=== PATIENT | female | born 1945 | race African-American/Black ===

== ENCOUNTER 2016-06-18 05:26 | Emergency (ER) | payer OTHER ==
[~2016-06-18] VITALS: Ht 157.5 cm; Wt 77.2 kg
[2016-06-18 06:58] LABS: BASOPHILS % 0.5 % (0.0-2.0); EOSINOPHILS % 2.2 % (0.0-5.0); HEMOGLOBIN. 13.3 g/dL (12.0-16.0); LYMPHOCYTES % 16.1 % (20.0-50.0); MEAN CORPUSCULAR HEMOGLOBIN 31.2 pg (28.0-32.0); MEAN CORPUSCULAR HGB CONC 33.2 g/dL (31.0-37.0); MEAN CORPUSCULAR VOLUME 93.9 fL (81.0-99.0); MEAN PLATELET VOLUME 9.4 fl (7.4-10.4); NEUTROPHILS % 70.2 % (40.0-76.0); PLATELET 148 x1000/uL (130-400); RED BLOOD CELL COUNT 4.26 mill/uL (4.2-5.4); RED CELL DISTRIBUTION WIDTH 14.6 % (11.6-14.6); WHITE BLOOD COUNT 7.6 x1000/uL (4.5-11.0)
[2016-06-18 07:03] LABS: ANION GAP 11; CALCIUM 10.9 mg/dL (8.5-10.1); CARBON DIOXIDE 34 mEq/L (21-32); CHLORIDE 104 mEq/L (98-107); INDEX HEMOLYSI 1 (1-3); INDEX ICTERIC 1 (1-4); INDEX LIPEMIC 1 (1-3); UREA NITROGEN BLOOD 10 mg/dL (7-21)
[2016-06-18 07:10] LABS: ALANINE AMINOTRANSFERASE 26 IU/L (13-61); PHENOBARBITAL 18.7 ug/mL (15.0-40.0); PHENYTOIN 7.6 ug/mL (10-20); eGFR > 60 mL/min (>60)
[2016-06-18 08:12] VITALS: BP 170/93
[2016-06-18] MEDS ORDERED: PHENYTOIN SODIUM EXTENDED 100MG CAPSULE PO ONE (08:30)
== END 2016-06-18 09:20 | disposition home or self-care (01) ==
LOC: ER 05:41
DX: G40.909 Epilepsy, unspecified, not intractable, without status epilepticus (principal); I10 Essential (primary) hypertension
CPT/HCPCS: 36415; 80053; 80184; 80185; 85025; 99284

== ENCOUNTER 2016-07-04 00:51 | Emergency (ER) | payer OTHER ==
[~2016-07-04] VITALS: Ht 157.5 cm; Wt 82.0 kg
[2016-07-04] MEDS ORDERED: METHYLPREDNISOLONE SOD SUCC 125 MG/2 ML VIAL IV STA (02:32)
[2016-07-04] MEDS ORDERED: IPRATROPIUM BROMIDE (0.02%) 0.5MG/2.5ML NEB HHN STA (02:32)
[2016-07-04] MEDS ORDERED: ALBUTEROL (0.083%) 2.5MG/3ML NEB HHN STA (02:32)
[2016-07-04] MEDS ORDERED: SODIUM CHLORIDE 0.9% 1,000 ML IV ONE (02:32)
[2016-07-04] MEDS ORDERED: LEVOFLOXACIN 500MG PREMIX 100 ML IV ONE (02:45)
[2016-07-04] MEDS ORDERED: MAGNESIUM 2 G PREMIX 50 ML IV ONE (02:45)
[2016-07-04 03:06] LABS: BASOPHILS % 0.9 % (0.0-2.0); HEMATOCRIT. 39.1 % (36.0-48.0); HEMOGLOBIN. 12.9 g/dL (12.0-16.0); LYMPHOCYTES % 24.8 % (20.0-50.0); MEAN CORPUSCULAR HEMOGLOBIN 30.7 pg (28.0-32.0); MEAN PLATELET VOLUME 9.6 fl (7.4-10.4); MONOCYTES % 11.9 % (2.0-8.0); NEUTROPHILS % 59.4 % (40.0-76.0); PLATELET 137 x1000/uL (130-400); RED CELL DISTRIBUTION WIDTH 14.3 % (11.6-14.6)
[2016-07-04 03:16] LABS: PROTHROMBIN TIME 10.5 sec
[2016-07-04 03:22] LABS: ALANINE AMINOTRANSFERASE 24 IU/L (13-61); ALBUMIN 3.7 g/dL (3.4-5.0); ANION GAP 13; CALCIUM 9.9 mg/dL (8.5-10.1); CARBON DIOXIDE 31 mEq/L (21-32); CHLORIDE 102 mEq/L (98-107); INDEX HEMOLYSI 1 (1-3); INDEX ICTERIC 1 (1-4); INDEX LIPEMIC 1 (1-3); LIPASE 173 IU/L (73-393); NT PRO B-TYPE NATRIURETIC PEP 12 pg/mL (5-125); TROPONIN I < 0.02 ng/mL (0.00-0.04); UREA NITROGEN BLOOD 8 mg/dL (7-21); eGFR > 60 mL/min (>60)
[2016-07-04 04:45] VITALS: BP 162/90
[2016-07-04] MEDS ORDERED: LORAZEPAM 2MG/ML CPJ IV ONE (05:15)
== END 2016-07-04 06:00 | disposition short-term general hospital (02) ==
LOC: ER 01:04
DX: J18.0 Bronchopneumonia, unspecified organism (principal); G40.909 Epilepsy, unspecified, not intractable, without status epilepticus; E87.6 Hypokalemia; J45.901 Unspecified asthma with (acute) exacerbation; I10 Essential (primary) hypertension; Z98.890 Other specified postprocedural states
CPT/HCPCS: 36415; 71010; 80053; 83605; 83690; 83880; 84484; 85025; 85610; 87040; 93005; 94640; 96365; 96368; 96375; 99291; J1956; J2060; J2930; J3475; J7030; J7611

== ENCOUNTER 2016-10-12 06:26 | Emergency (ER) | payer OTHER ==
[~2016-10-12] VITALS: Ht 160 cm; Wt 78.0 kg
[~2016-10-12 06:26] MED LIST: ALBU6.7H INH; ALEN70TA46 PO; BECL8.7A6 INH; FLUT16SP15 BOTHNSTRLS; SERT-112 PO; VERA240T PO; [UNRECOGNIZED DRUG - OTHER]; keppra PO
[2016-10-12] MEDS ORDERED: LOSA50TA20 PO (07:03)
[2016-10-12] MEDS ORDERED: MONT10TA24 PO (07:03)
[2016-10-12] MEDS ORDERED: TERA2CAP53 PO (07:03)
[2016-10-12] MEDS ORDERED: PHEN100C4 PO (07:03)
[2016-10-12] MEDS ORDERED: PHEN32.418 PO (07:03)
[2016-10-12] MEDS ORDERED: IPRATROPIUM BROMIDE (0.02%) 0.5MG/2.5ML NEB HHN STA (07:15)
[2016-10-12] MEDS ORDERED: ALBUTEROL (0.083%) 2.5MG/3ML NEB HHN STA (07:15)
[2016-10-12] MEDS ORDERED: PREDNISONE 20MG TABLET PO ONE (08:00)
[2016-10-12 09:52] VITALS: BP 171/99
== END 2016-10-12 09:52 | disposition home or self-care (01) ==
LOC: ER 08:26
DX: J45.901 Unspecified asthma with (acute) exacerbation (principal); I10 Essential (primary) hypertension; G40.909 Epilepsy, unspecified, not intractable, without status epilepticus
CPT/HCPCS: 71010; 94640; 99283; J7512; J7611

== ENCOUNTER 2016-12-19 05:24 | Emergency (ER) | payer OTHER ==
[~2016-12-19] VITALS: Ht 157.5 cm; Wt 79.0 kg
[~2016-12-19 05:24] MED LIST changes: +LOSA50TA20 PO; +MONT10TA24 PO; +PHEN100C4 PO; +PHEN32.43 PO; +TERA2CAP4 PO
[2016-12-19] MEDS ORDERED: KETOROLAC 60MG/2ML VIAL IM ONE (08:15)
[2016-12-19 08:56] VITALS: BP 178/94
== END 2016-12-19 09:13 | disposition home or self-care (01) ==
LOC: ER 06:30
DX: M25.522 Pain in left elbow (principal); M54.2 Cervicalgia; I10 Essential (primary) hypertension; J45.909 Unspecified asthma, uncomplicated
CPT/HCPCS: 72125; 73080; 96372; 99284; J1885

== ENCOUNTER 2017-05-01 13:40 | Emergency (ER) | payer OTHER ==
[~2017-05-01] VITALS: Ht 162.6 cm; Wt 66.0 kg
[~2017-05-01 13:40] MED LIST changes: -ALEN70TA46 PO; +ASPI-1159 PO; -BECL8.7A6 INH; +FLUT9.9S NS; +PHEN50TA PO; -SERT-112 PO; -[UNRECOGNIZED DRUG - OTHER]; -keppra PO
[2017-05-01] MEDS ORDERED: HYDROCODONE/ACETAMINOPHEN 5/325MG TABLET PO ONE (15:00)
[2017-05-01] MEDS ORDERED: ONDANSETRON HCL 4MG/2ML VIAL IV ONE (15:00)
[2017-05-01 15:28] VITALS: BP 174/88
[2017-05-01] MEDS ORDERED: LEVOFLOXACIN 750MG PREMIX 150 ML IV ONE (15:45)
[2017-05-01] MEDS ORDERED: ACETAMINOPHEN 650MG SUPP PR ONE (15:45)
[2017-05-01 15:50] LABS: BASOPHILS % 0.8 % (0.0-2.0); EOSINOPHILS % 2.2 % (0.0-5.0); HEMATOCRIT. 40.2 % (36.0-48.0); HEMOGLOBIN. 13.3 g/dL (12.0-16.0); INR 1.1; LYMPHOCYTES % 25.6 % (20.0-50.0); MEAN CORPUSCULAR HEMOGLOBIN 31.2 pg (28.0-32.0); MEAN PLATELET VOLUME 9.6 fl (7.4-10.4); MONOCYTES % 11.6 % (2.0-8.0); NEUTROPHILS % 59.8 % (40.0-76.0); PLATELET 149 x1000/uL (130-400); RED BLOOD CELL COUNT 4.28 mill/uL (4.2-5.4); RED CELL DISTRIBUTION WIDTH 13.8 % (11.6-14.6)
[2017-05-01 15:55] LABS: CHLORIDE 104 mEq/L (98-107)
[2017-05-01 16:01] LABS: PHENOBARBITAL 17.2 ug/mL (15.0-40.0); TROPONIN I < 0.02 ng/mL (0.00-0.04)
[2017-05-01] MEDS ORDERED: DIPHENHYDRAMINE 50MG/ML VIAL IV ONE (17:15)
[2017-05-01] MEDS ORDERED: PROCHLORPERAZINE 10MG/2ML VIAL IV ONE (17:15)
[2017-05-01 17:27] LABS: CLARITY URINE CLEAR (CLEAR); COLOR URINE YELLOW (YELLOW); KETONES URINE NEGATIVE (NEGATIVE); LEUKOCYTE ESTERASE URINE NEGATIVE (NEGATIVE); NITRITE URINE NEGATIVE (NEGATIVE); OCCULT BLOOD URINE NEGATIVE (NEGATIVE); PH URINE 7.5 (4.5-8.0); PROTEIN URINE NEGATIVE (NEGATIVE); SPECIFIC GRAVITY URINE 1.013 (1.005-1.030); UROBILINOGEN URINE 0.2 E.U./dL (0.2-1.0)
== END 2017-05-01 19:03 | disposition home or self-care (01) ==
LOC: ER 13:40
DX: S16.1XXA Strain of muscle, fascia and tendon at neck level, initial encounter (principal); R42 Dizziness and giddiness; H57.8 Other specified disorders of eye and adnexa; J45.909 Unspecified asthma, uncomplicated; I10 Essential (primary) hypertension; R56.9 Unspecified convulsions; F41.9 Anxiety disorder, unspecified; E87.6 Hypokalemia; Z79.82 Long term (current) use of aspirin; Z90.49 Acquired absence of other specified parts of digestive tract; Z98.890 Other specified postprocedural states; Z90.89 Acquired absence of other organs; X58.XXXA Exposure to other specified factors, initial encounter; Y93.89 Activity, other specified; Y92.89 Other specified places as the place of occurrence of the external cause; Y99.8 Other external cause status
CPT/HCPCS: 36415; 71045; 80053; 80184; 80185; 81003; 83880; 84484; 85025; 85610; 93005; 96374; 96375; 99285; J0780; J1200; J2405

== ENCOUNTER 2017-08-20 09:14 | Emergency (ER) | payer OTHER ==
[~2017-08-20] VITALS: Ht 162.6 cm; Wt 74.0 kg
[2017-08-20] MEDS ORDERED: ONDANSETRON HCL 4MG/2ML VIAL IV STA (10:09)
[2017-08-20] MEDS ORDERED: SODIUM CHLORIDE 0.9% 1,000 ML IV ONE (10:09)
[2017-08-20] MEDS ORDERED: MORPHINE SULFATE 4 MG/ML CPJ (NOT FOR IM USE) IV STA (10:09)
[2017-08-20 10:51] LABS: BASOPHILS % 0.6 % (0.0-2.0); EOSINOPHILS % 1.8 % (0.0-5.0); HEMATOCRIT. 39.7 % (36.0-48.0); HEMOGLOBIN. 13.4 g/dL (12.0-16.0); LYMPHOCYTES % 26.5 % (20.0-50.0); MEAN CORPUSCULAR HEMOGLOBIN 31.5 pg (28.0-32.0); MEAN CORPUSCULAR VOLUME 93.2 fL (81.0-99.0); MEAN PLATELET VOLUME 9.2 fl (7.4-10.4); NEUTROPHILS % 58.1 % (40.0-76.0); PLATELET 133 x1000/uL (130-400); RED BLOOD CELL COUNT 4.26 mill/uL (4.2-5.4); RED CELL DISTRIBUTION WIDTH 13.5 % (11.6-14.6)
[2017-08-20 10:56] LABS: CHLORIDE 104 mEq/L (98-107)
[2017-08-20 10:59] LABS: PARTIAL THROMBOPLASTIN TIME 27.8 sec (23.4-31.0); PROTHROMBIN TIME 10.9 sec (9.4-11.6)
[2017-08-20] MEDS ORDERED: IOHEXOL-300 100 ML BOTTLE ONE (12:12)
[2017-08-20 12:15] LABS: CLARITY URINE CLEAR (CLEAR); COLOR URINE YELLOW (YELLOW); KETONES URINE NEGATIVE (NEGATIVE); LEUKOCYTE ESTERASE URINE 1+ (NEGATIVE); NITRITE URINE NEGATIVE (NEGATIVE); OCCULT BLOOD URINE 1+ (NEGATIVE); PROTEIN URINE NEGATIVE (NEGATIVE); UROBILINOGEN URINE 0.2 E.U./dL (0.2-1.0)
[2017-08-20 12:46] VITALS: BP 149/87
== END 2017-08-20 12:48 | disposition home or self-care (01) ==
LOC: ER 09:48
DX: R10.33 Periumbilical pain (principal); R11.0 Nausea; Z79.899 Other long term (current) drug therapy
CPT/HCPCS: 36415; 71045; 74177; 80053; 81003; 83690; 85025; 85610; 85730; 96361; 96374; 96375; 99285; J2270; J2405; J7030; Q9967

== ENCOUNTER 2017-11-13 02:49 | Emergency (ER) | payer OTHER ==
[~2017-11-13] VITALS: Ht 160 cm; Wt 79.0 kg
[2017-11-13] MEDS ORDERED: ALPRAZOLAM 0.5 MG TABLET PO ONE (03:30)
[2017-11-13 03:48] LABS: BASOPHILS % 0.5 % (0.0-2.0); EOSINOPHILS % 1.4 % (0.0-5.0); HEMATOCRIT. 44.4 % (36.0-48.0); HEMOGLOBIN. 14.7 g/dL (12.0-16.0); LYMPHOCYTES % 23.8 % (20.0-50.0); MEAN CORPUSCULAR HEMOGLOBIN 31.2 pg (28.0-32.0); MEAN CORPUSCULAR VOLUME 94.5 fL (81.0-99.0); MEAN PLATELET VOLUME 9.1 fl (7.4-10.4); NEUTROPHILS % 62.3 % (40.0-76.0); PLATELET 123 x1000/uL (130-400); RED BLOOD CELL COUNT 4.69 mill/uL (4.2-5.4); RED CELL DISTRIBUTION WIDTH 13.9 % (11.6-14.6)
[2017-11-13 03:49] LABS: CHLORIDE 105 mEq/L (98-107)
[2017-11-13 06:33] VITALS: BP 165/98
== END 2017-11-13 06:33 | disposition home or self-care (01) ==
LOC: ER 02:49
DX: F41.9 Anxiety disorder, unspecified (principal); R00.2 Palpitations; I10 Essential (primary) hypertension; Z98.890 Other specified postprocedural states; Z79.82 Long term (current) use of aspirin; Z79.899 Other long term (current) drug therapy
CPT/HCPCS: 36415; 71045; 80053; 85025; 93005; 99285

== ENCOUNTER 2017-12-17 16:40 | Emergency (ER) | payer OTHER ==
[~2017-12-17] VITALS: Ht 160 cm; Wt 82.0 kg
[2017-12-17] MEDS ORDERED: CLONIDINE 0.2MG TABLET PO ONE (17:30)
[2017-12-17 17:49] LABS: CLARITY URINE CLEAR (CLEAR); COLOR URINE YELLOW (YELLOW); KETONES URINE NEGATIVE (NEGATIVE); LEUKOCYTE ESTERASE URINE TRACE (NEGATIVE); NITRITE URINE NEGATIVE (NEGATIVE); OCCULT BLOOD URINE NEGATIVE (NEGATIVE); PROTEIN URINE NEGATIVE (NEGATIVE); SPECIFIC GRAVITY URINE 1.004 (1.005-1.030); UROBILINOGEN URINE 0.2 E.U./dL (0.2-1.0)
[2017-12-17 17:56] LABS: *AMPHETAMINES SCREEN URINE NEGATIVE (NEGATIVE); *BARBITURATES SCREEN URINE PRESUMTIVE POSITIVE (NEGATIVE); *BENZODIAZEPINES SCREEN URINE NEGATIVE (NEGATIVE); *COCAINE SCREEN URINE NEGATIVE (NEGATIVE)
[2017-12-17 17:57] LABS: CANNABINOID URINE SCREEN NEGATIVE (NEGATIVE); METHADONE URINE SCREEN NEGATIVE (NEGATIVE); OPIATES URINE SCREEN NEGATIVE (NEGATIVE); PHENCYCLIDINE URINE SCREEN NEGATIVE (NEGATIVE)
[2017-12-17 19:50] LABS: BASOPHILS % 0.8 % (0.0-2.0); EOSINOPHILS % 2.2 % (0.0-5.0); HEMATOCRIT. 41.9 % (36.0-48.0); HEMOGLOBIN. 14.1 g/dL (12.0-16.0); LYMPHOCYTES % 27.8 % (20.0-50.0); MEAN CORPUSCULAR HEMOGLOBIN 31.7 pg (28.0-32.0); MEAN CORPUSCULAR VOLUME 94.6 fL (81.0-99.0); MEAN PLATELET VOLUME 9.5 fl (7.4-10.4); MONOCYTES % 13.4 % (2.0-8.0); NEUTROPHILS % 55.8 % (40.0-76.0); PLATELET 125 x1000/uL (130-400); RED BLOOD CELL COUNT 4.43 mill/uL (4.2-5.4)
[2017-12-17 19:58] LABS: INR 1.1; PROTHROMBIN TIME 10.6 sec (9.1-11.1)
[2017-12-17 20:06] LABS: CHLORIDE 103 mEq/L (98-107)
[2017-12-17 20:11] LABS: CREATINE KINASE 93 IU/L (26-192); ETHANOL BLOOD < 10 mg/dL; PHENOBARBITAL 14.8 ug/mL (15.0-40.0)
[2017-12-17 20:17] LABS: CARBAMAZEPINE < 0.5 ug/mL (4-12); VALPROIC ACID < 3.0 ug/mL (50-100)
[2017-12-17 21:40] VITALS: BP 135/85
== END 2017-12-17 22:07 | disposition home or self-care (01) ==
LOC: ER 16:40
DX: I10 Essential (primary) hypertension (principal); N39.0 Urinary tract infection, site not specified; R51 Headache; F41.9 Anxiety disorder, unspecified; Z98.890 Other specified postprocedural states; Z79.899 Other long term (current) drug therapy
CPT/HCPCS: 36415; 70450; 71045; 80053; 80156; 80165; 80184; 80185; 80305; 81003; 82550; 84443; 84484; 85025; 85610; 93005; 99285; G0482

== ENCOUNTER 2019-01-22 06:41 | Emergency (ER) | payer OTHER ==
[~2019-01-22] VITALS: Ht 157.5 cm; Wt 82.0 kg
[~2019-01-22 06:41] MED LIST changes: -ASPI-1159 PO; +ASPI-1393 PO; -LOSA50TA20 PO; +LOSA50TA41 PO
[2019-01-22] MEDS ORDERED: LORAZEPAM 0.5MG TABLET PO ONE (08:30)
[2019-01-22] MEDS ORDERED: ACETAMINOPHEN 325MG TABLET PO ONE (08:30)
[2019-01-22] MEDS ORDERED: METOCLOPRAMIDE HCL 10MG TABLET PO ONE (08:30)
[2019-01-22 09:50] VITALS: BP 141/70
== END 2019-01-22 10:15 | disposition home or self-care (01) ==
LOC: ER 06:41
DX: R51 Headache (principal); F41.0 Panic disorder [episodic paroxysmal anxiety]; R03.0 Elevated blood-pressure reading, without diagnosis of hypertension
CPT/HCPCS: 99284; J8597

== ENCOUNTER 2019-03-08 11:13 | Emergency (ER) | payer OTHER ==
[~2019-03-08] VITALS: Ht 160 cm; Wt 81.0 kg
[2019-03-08 18:02] VITALS: BP 181/97
[2019-03-08] MEDS ORDERED: DIAZEPAM 5 MG/ML 2ML CPJ IM ONE (18:15)
[2019-03-08] MEDS ORDERED: LEVETIRACETAM 250MG TABLET PO ONE (18:45)
== END 2019-03-08 18:52 | disposition home or self-care (01) ==
LOC: ER 11:13
DX: F41.9 Anxiety disorder, unspecified (principal); R00.2 Palpitations; R51 Headache; T14.8XXA Other injury of unspecified body region, initial encounter; X58.XXXA Exposure to other specified factors, initial encounter; Y93.89 Activity, other specified; Y92.89 Other specified places as the place of occurrence of the external cause; Y99.8 Other external cause status; I10 Essential (primary) hypertension; Z98.890 Other specified postprocedural states; Z79.82 Long term (current) use of aspirin; Z79.899 Other long term (current) drug therapy
CPT/HCPCS: 93005; 96372; 99283

== ENCOUNTER 2019-05-14 08:37 | Emergency (ER) | payer OTHER ==
[~2019-05-14] VITALS: Ht 157.5 cm; Wt 82.0 kg
[~2019-05-14 08:37] MED LIST changes: -ALBU6.7H INH; +ALBU6.7H11 INH; -ASPI-1393 PO; +ASPI-1497 PO; -MONT10TA24 PO; +MONT10TA26 PO; -PHEN32.43 PO; +PHEN32.46 PO
[2019-05-14] MEDS ORDERED: LORAZEPAM 1MG TABLET PO ONE (09:45)
[2019-05-14] MEDS ORDERED: METOCLOPRAMIDE HCL 10MG TABLET PO ONE (09:45)
[2019-05-14] MEDS ORDERED: KETOROLAC 60MG/2ML VIAL IM ONE (09:45)
[2019-05-14 10:45] VITALS: BP 133/68
== END 2019-05-14 10:47 | disposition home or self-care (01) ==
LOC: ER 10:12
DX: F41.9 Anxiety disorder, unspecified (principal); R51 Headache; M54.5 Low back pain; I10 Essential (primary) hypertension; Z79.899 Other long term (current) drug therapy; Z98.890 Other specified postprocedural states
CPT/HCPCS: 96372; 99283; J1885; J8597

== ENCOUNTER 2019-06-05 08:58 | Emergency (ER) | payer OTHER ==
[~2019-06-05] VITALS: Ht 157.5 cm; Wt 82.0 kg
[2019-06-05 09:30] VITALS: BP 168/87
[2019-06-05] MEDS ORDERED: LORAZEPAM 0.5MG TABLET PO ONE (10:45)
== END 2019-06-05 11:01 | disposition home or self-care (01) ==
LOC: ER 09:12
DX: F41.9 Anxiety disorder, unspecified (principal); M54.5 Low back pain; I10 Essential (primary) hypertension; Z79.899 Other long term (current) drug therapy
CPT/HCPCS: 99282; 99283

== ENCOUNTER 2019-06-16 18:40 | Emergency (ER) | payer OTHER ==
[~2019-06-16] VITALS: Ht 165.1 cm; Wt 95.0 kg
[2019-06-16] MEDS ORDERED: DIAZEPAM 2 MG TABLET PO ONE (21:30)
[2019-06-16 23:30] VITALS: BP 156/88
== END 2019-06-17 01:51 | disposition home or self-care (01) ==
LOC: ER 18:40
DX: F41.9 Anxiety disorder, unspecified (principal); I10 Essential (primary) hypertension; Z79.82 Long term (current) use of aspirin; Z79.899 Other long term (current) drug therapy
CPT/HCPCS: 99284

== ENCOUNTER 2019-08-02 01:04 | Emergency (ER) | payer OTHER ==
[~2019-08-02] VITALS: Ht 157.5 cm; Wt 73.0 kg
[2019-08-02 01:18] VITALS: BP 147/87
[2019-08-02] MEDS ORDERED: LORAZEPAM 0.5MG TABLET PO ONE (01:45)
== END 2019-08-02 02:13 | disposition home or self-care (01) ==
LOC: ER 01:04
DX: F41.0 Panic disorder [episodic paroxysmal anxiety] (principal); I10 Essential (primary) hypertension; Z79.899 Other long term (current) drug therapy; Z79.82 Long term (current) use of aspirin
CPT/HCPCS: 99283

== ENCOUNTER 2019-08-04 17:50 | Emergency (ER) | payer OTHER ==
[~2019-08-04] VITALS: Ht 157.5 cm; Wt 82.0 kg
[2019-08-04] MEDS ORDERED: LEVETIRACETAM 500MG TABLET PO ONE (18:30)
[2019-08-04 18:43] LABS: BASOPHILS % 0.7 % (0.0-2.0); EOSINOPHILS % 1.1 % (0.0-5.0); HEMOGLOBIN. 14.2 g/dL (12.0-16.0); LYMPHOCYTES % 24.6 % (20.0-50.0); MEAN CORPUSCULAR HEMOGLOBIN 31.5 pg (28.0-32.0); MEAN PLATELET VOLUME 9.2 fl (7.4-10.4); MONOCYTES % 13.1 % (2.0-8.0); NEUTROPHILS % 60.5 % (40.0-76.0); PLATELET 169 x1000/uL (130-400); RED BLOOD CELL COUNT 4.52 mill/uL (4.2-5.4); RED CELL DISTRIBUTION WIDTH 13.7 % (11.6-14.6)
[2019-08-04 18:48] LABS: CHLORIDE 99 mEq/L (98-107)
[2019-08-04 19:38] VITALS: BP 147/78
== END 2019-08-04 20:42 | disposition home or self-care (01) ==
LOC: ER 17:50
DX: G40.909 Epilepsy, unspecified, not intractable, without status epilepticus (principal); I10 Essential (primary) hypertension; Z98.890 Other specified postprocedural states
CPT/HCPCS: 36415; 80053; 85025; 93005; 99284

== ENCOUNTER 2019-09-04 11:20 | Emergency (ER) | payer OTHER ==
[~2019-09-04] VITALS: Ht 157.5 cm; Wt 82.0 kg
[2019-09-04] MEDS ORDERED: LORAZEPAM 2MG/ML CPJ IV ONE (14:00)
[2019-09-04] MEDS ORDERED: TRAMADOL 50MG TABLET PO ONE (14:15)
[2019-09-04 15:28] LABS: CLARITY URINE CLEAR (CLEAR); COLOR URINE YELLOW (YELLOW); KETONES URINE NEGATIVE (NEGATIVE); LEUKOCYTE ESTERASE URINE 1+ (NEGATIVE); NITRITE URINE NEGATIVE (NEGATIVE); OCCULT BLOOD URINE NEGATIVE (NEGATIVE); PROTEIN URINE NEGATIVE (NEGATIVE); SPECIFIC GRAVITY URINE 1.009 (1.005-1.030); UROBILINOGEN URINE 0.2 E.U./dL (0.2-1.0)
[2019-09-04 17:45] VITALS: BP 146/80
== END 2019-09-04 18:38 | disposition home or self-care (01) ==
LOC: ER 11:20
DX: F41.9 Anxiety disorder, unspecified (principal); N30.90 Cystitis, unspecified without hematuria; I10 Essential (primary) hypertension; Z79.899 Other long term (current) drug therapy
CPT/HCPCS: 81003; 96374; 99285; J2060

== ENCOUNTER 2019-10-19 19:20 | Emergency (ER) | payer OTHER ==
[~2019-10-19] VITALS: Ht 162.6 cm; Wt 68.0 kg
[2019-10-19 20:22] LABS: BASOPHILS % 0.9 % (0.0-2.0); EOSINOPHILS % 2.5 % (0.0-5.0); HEMATOCRIT. 38.1 % (36.0-48.0); HEMOGLOBIN. 12.9 g/dL (12.0-16.0); LYMPHOCYTES % 28.7 % (20.0-50.0); MEAN CORPUSCULAR HEMOGLOBIN 31.6 pg (28.0-32.0); MEAN CORPUSCULAR VOLUME 93.3 fL (81.0-99.0); MEAN PLATELET VOLUME 9.1 fl (7.4-10.4); MONOCYTES % 14.2 % (2.0-8.0); NEUTROPHILS % 53.7 % (40.0-76.0); PLATELET 162 x1000/uL (130-400); RED BLOOD CELL COUNT 4.09 mill/uL (4.2-5.4); RED CELL DISTRIBUTION WIDTH 13.3 % (11.6-14.6)
[2019-10-19 20:28] LABS: CHLORIDE 105 mEq/L (98-107)
[2019-10-19] MEDS ORDERED: LORAZEPAM 2MG/ML CPJ IV NR (22:30)
[2019-10-20] MEDS ORDERED: ASPIRIN 325MG TABLET PO SCH (01:45)
[2019-10-20 03:20] VITALS: BP 151/78
== END 2019-10-20 03:22 | disposition short-term general hospital (02) ==
LOC: ER 19:24
DX: R00.2 Palpitations (principal); R07.89 Other chest pain; R06.02 Shortness of breath; I10 Essential (primary) hypertension; G40.909 Epilepsy, unspecified, not intractable, without status epilepticus
CPT/HCPCS: 36415; 71045; 80053; 83880; 84484; 85025; 93005; 96374; 99285; J2060

== ENCOUNTER 2019-10-27 06:24 | Emergency (ER) | payer OTHER ==
[~2019-10-27] VITALS: Ht 157.5 cm; Wt 80.7 kg
[2019-10-27] MEDS ORDERED: KETOROLAC 30MG/ML VIAL IV STA (07:51)
[2019-10-27] MEDS ORDERED: SODIUM CHLORIDE 0.9% 1,000 ML IV ONE (07:51)
[2019-10-27] MEDS ORDERED: METOCLOPRAMIDE HCL 10MG/2ML VIAL IV ONE (08:00)
[2019-10-27] MEDS ORDERED: LORAZEPAM 0.5MG TABLET PO ONE (09:00)
[2019-10-27 09:33] VITALS: BP 132/78
== END 2019-10-27 09:34 | disposition home or self-care (01) ==
LOC: ER 06:24
DX: R51 Headache (principal); F41.9 Anxiety disorder, unspecified; M62.838 Other muscle spasm; J45.909 Unspecified asthma, uncomplicated
CPT/HCPCS: 96361; 96374; 96375; 99284; J1885; J2765; J7030

== ENCOUNTER 2019-12-31 11:32 | Emergency (ER) | payer OTHER ==
[~2019-12-31] VITALS: Ht 157.5 cm; Wt 75.0 kg
[2019-12-31] MEDS ORDERED: IBUPROFEN 600MG TABLET PO ONE (11:45)
[2019-12-31 12:16] VITALS: BP 144/83
[2019-12-31 12:28] LABS: CLARITY URINE CLEAR (CLEAR); COLOR URINE YELLOW (YELLOW); KETONES URINE NEGATIVE (NEGATIVE); LEUKOCYTE ESTERASE URINE 2+ (NEGATIVE); NITRITE URINE NEGATIVE (NEGATIVE); OCCULT BLOOD URINE TRACE (NEGATIVE); PROTEIN URINE NEGATIVE (NEGATIVE); SPECIFIC GRAVITY URINE 1.016 (1.005-1.030); UROBILINOGEN URINE 0.2 E.U./dL (0.2-1.0)
== END 2019-12-31 13:00 | disposition home or self-care (01) ==
LOC: ER 11:32
DX: N39.0 Urinary tract infection, site not specified (principal); I10 Essential (primary) hypertension; G40.909 Epilepsy, unspecified, not intractable, without status epilepticus; J45.909 Unspecified asthma, uncomplicated
CPT/HCPCS: 71045; 81003; 99284

== ENCOUNTER 2020-01-24 06:15 | Emergency (ER) | payer OTHER ==
[~2020-01-24] VITALS: Ht 157.5 cm; Wt 82.0 kg
[2020-01-24 08:47] VITALS: BP 184/90
== END 2020-01-24 09:05 | disposition home or self-care (01) ==
LOC: ER 06:15
DX: M79.605 Pain in left leg (principal); M79.604 Pain in right leg
CPT/HCPCS: 99281; 99282

== ENCOUNTER 2020-06-21 12:55 | Emergency (ER) | payer OTHER ==
[~2020-06-21] VITALS: Ht 160 cm; Wt 77.0 kg
[~2020-06-21 12:55] MED LIST changes: -MONT10TA26 PO; +MONT10TA32 PO
[2020-06-21] MEDS ORDERED: HYDROCODONE/ACETAMINOPHEN 5/325MG TABLET PO ONE (13:15)
[2020-06-21] MEDS ORDERED: ONDANSETRON 4MG ODT PO ONE (13:15)
[2020-06-21 13:51] VITALS: BP 184/94
[2020-06-21] MEDS ORDERED: HYDR-4346 MT (14:34)
[2020-06-21] MEDS ORDERED: ONDA4TAB5 MT (14:34)
== END 2020-06-21 15:16 | disposition home or self-care (01) ==
LOC: ER 12:55
DX: M54.5 Low back pain (principal); Z91.81 History of falling; N20.0 Calculus of kidney; M95.5 Acquired deformity of pelvis; I10 Essential (primary) hypertension; M51.36 Other intervertebral disc degeneration, lumbar region; G40.909 Epilepsy, unspecified, not intractable, without status epilepticus; Z79.899 Other long term (current) drug therapy; Z79.82 Long term (current) use of aspirin
CPT/HCPCS: 72131; 99284; Q0162

== ENCOUNTER 2021-03-06 03:40 | Emergency (ER) | payer OTHER ==
[~2021-03-06] VITALS: Ht 172.7 cm; Wt 75.0 kg
[~2021-03-06 03:40] MED LIST changes: -ALBU6.7H11 INH; +ALBU6.7H15 INH; +HYDR-4346 MT; +ONDA4TAB5 MT
[2021-03-06] MEDS ORDERED: LEVETIRACETAM 1000MG PREMIX 100 ML IV ONE (04:00)
[2021-03-06 05:37] LABS: BASOPHILS % 0.8 % (0.0-2.0); EOSINOPHILS % 0.7 % (0.0-5.0); HEMATOCRIT. 40.8 % (36.0-48.0); HEMOGLOBIN. 13.5 g/dL (12.0-16.0); LYMPHOCYTES % 19.7 % (20.0-50.0); MEAN CORPUSCULAR HEMOGLOBIN 30.3 pg (28.0-32.0); MEAN CORPUSCULAR VOLUME 91.8 fL (81.0-99.0); MEAN PLATELET VOLUME 9.3 fl (7.4-10.4); MONOCYTES % 11.2 % (2.0-8.0); NEUTROPHILS % 67.6 % (40.0-76.0); PLATELET 162 x1000/uL (130-400); RED BLOOD CELL COUNT 4.45 mill/uL (4.2-5.4); RED CELL DISTRIBUTION WIDTH 13.5 % (11.6-14.6)
[2021-03-06 05:46] LABS: CHLORIDE 106 mEq/L (98-107)
[2021-03-06 05:54] LABS: PHENOBARBITAL 5.3 ug/mL (15.0-40.0)
[2021-03-06 06:02] LABS: VALPROIC ACID < 3.0 ug/mL (50-100)
[2021-03-06 08:00] VITALS: BP 180/100
== END 2021-03-06 08:46 | disposition home or self-care (01) ==
LOC: ER 03:40
DX: G40.909 Epilepsy, unspecified, not intractable, without status epilepticus (principal); Z79.899 Other long term (current) drug therapy
CPT/HCPCS: 36415; 80053; 80165; 80184; 85025; 93005; 96365; 99284; J1953

== ENCOUNTER 2021-03-09 08:30 | Emergency (ER) | payer OTHER ==
[~2021-03-09] VITALS: Ht 167.6 cm; Wt 79.5 kg
[2021-03-09] MEDS ORDERED: IBUPROFEN 400MG TABLET PO ONE (09:45)
[2021-03-09] MEDS ORDERED: ACETAMINOPHEN 325MG TABLET PO ONE (09:45)
[2021-03-09] MEDS ORDERED: CLONIDINE 0.2MG TABLET PO ONE (11:15)
[2021-03-09] MEDS ORDERED: LOSARTAN POTASSIUM 50 MG TABLET PO ONE (11:15)
[2021-03-09 11:41] VITALS: BP 196/102
== END 2021-03-09 11:41 | disposition short-term general hospital (02) ==
LOC: ER 09:17
DX: M54.50 Low back pain, unspecified (principal); J45.909 Unspecified asthma, uncomplicated; I10 Essential (primary) hypertension
CPT/HCPCS: 99285

== ENCOUNTER 2021-03-13 03:06 | Emergency (ER) | payer OTHER ==
[~2021-03-13] VITALS: Ht 167.6 cm; Wt 62.0 kg
[2021-03-13] MEDS ORDERED: LORAZEPAM 1MG TABLET PO ONE (03:30)
[2021-03-13 04:12] VITALS: BP 125/71
== END 2021-03-13 04:13 | disposition home or self-care (01) ==
LOC: ER 03:06
DX: F41.0 Panic disorder [episodic paroxysmal anxiety] (principal); R94.31 Abnormal electrocardiogram [ECG] [EKG]
CPT/HCPCS: 93005; 99283